=== PATIENT | male | born 1980 | race African-American/Black ===

== ENCOUNTER 2018-02-24 18:21 | Emergency (ER) | payer MEDICARE, MEDICAID ==
[~2018-02-24] VITALS: Ht 175.3 cm; Wt 73.0 kg
[~2018-02-24 18:21] MED LIST: ALBUTEROL; ATIVAN
[2018-02-24] MEDS ORDERED: PHEN100C4 PO (18:33)
[2018-02-24] MEDS ORDERED: ACETAMINOPHEN WITH CODEINE 300/30MG TABLET PO ONE (19:45)
[2018-02-24 20:27] VITALS: BP 108/57
== END 2018-02-24 21:23 | disposition home or self-care (01) ==
LOC: ER 18:21
DX: R53.1 Weakness (principal); G89.29 Other chronic pain; M54.9 Dorsalgia, unspecified; F41.9 Anxiety disorder, unspecified; J45.909 Unspecified asthma, uncomplicated; E11.9 Type 2 diabetes mellitus without complications
CPT/HCPCS: 99283